=== PATIENT | female | born 1945 | race Caucasian/White ===

== ENCOUNTER → 2016-11-03 | Outpatient (CLI) | payer OTHER | LOC: MMPC 09:00 | PROVIDERS: ATTEND Family Medicine | DX: I10 Essential (primary) hypertension (principal); F32.0 Major depressive disorder, single episode, mild; K86.1 Other chronic pancreatitis; E66.9 Obesity, unspecified | CPT/HCPCS: 99214; G0463 ==

== ENCOUNTER → 2016-12-26 | Outpatient (CLI) | payer OTHER ==
--- NOTE | 2016-12-26 15:14 | EKG ---
[address] [address] Measurements Intervals [place] Rate: 69 P: 62 [place]: 153 QRS: 32 QRSD: 78 T: 25 QT: 406 QTc: 425 Interpretive Statements SINUS RHYTHM No previous ECG available for comparison Electronically Signed On 12-26-16 15:57:50 MDT by Derrell Bryant [id number]
[2016-12-26 16:11] LABS: HEMATOCRIT 31.9 % (37.0-47.0); HEMOGLOBIN 10.7 g/dL (12.0-16.0); MEAN CORPUSCULAR HGB CONC 33.5 g/dL (33-37); MEAN CORPUSCULAR VOLUME 92.5 FL (81-99); MEAN PLATELET VOLUME 8.5 FL (7.4-12.2); RED BLOOD COUNT 3.45 10^6/uL (4.20-5.40)
[2016-12-26 16:33] LABS: CALCIUM 8.9 mg/dL (8.7-10.7)
--- NOTE | 2016-12-26 18:17 | DI ---
XR HIP COMPLETE MIN 2VW U/L,12/26/2016 2:43 PM: Clinical History: Right hip pain. Previous Exam: None at this facility. Findings: 3 views of the right hip are obtained, and demonstrate loss of joint space with some sclerosis and os teophyte formation. Mild degenerative changes of the contralateral hip are also noted. A nonobstructive bowel gas pattern is seen. There are a few ossifications noted overlying the buttocks likely representing injection granulomas. Impression: Degenerative changes of the right hip joint.
== END ==
LOC: MOB RAD 14:44
PROVIDERS: ATTEND Family Medicine
DX: K86.1 Other chronic pancreatitis (principal); I10 Essential (primary) hypertension; M25.551 Pain in right hip; R07.2 Precordial pain; M16.11 Unilateral primary osteoarthritis, right hip
CPT/HCPCS: 36415; 73502; 80053; 82787; 83690; 84443; 85027; 93005; 93010

== ENCOUNTER → 2017-01-02 | Outpatient (CLI) | payer OTHER ==
--- NOTE | 2017-01-02 13:44 | DI ---
CT ABD W/CN AND PELVIS W/CN,01/02/2017 12:52 PM: Clinical History: Chronic pancreatitis. Previous Exam: October 13, 2014 Findings: Multiple helically acquired CT images are obtained through the abdomen and pelvis following the intra venous administration of 75 cc of Isovue 300, and demonstrate a normal liver and spleen. Postsurgical changes are noted of the gastroesophageal junction. The distal esophagus appears to be thickened sli ghtly although this is stable from the prior exam. Patient is status post cholecystectomy. The adrenals and kidneys are unremarkable. The pancreas is no rmal. Peripheral vascular calcifications are seen. There is a stable ventral hernia containing a short loop of small bowel. The appendix is normal. The urinary bladder is unremarkable. There is no free air nor free fluid. There is gentle dextroscoliosis of the lumbar spine. The visualized portions of the thoracic and lumbar spine are unremarkable. There is a broad-based disc bulge at L3/4 causing moderate to severe left and moderate right neurofor aminal narrowing with central canal stenosis. Impression: 1. Normal pancreas. 2. Anterior abdominal wall hernia containing a short loop of small bowel.
== END ==
LOC: CT 12:46
PROVIDERS: ATTEND Family Medicine
DX: K86.1 Other chronic pancreatitis (principal)
CPT/HCPCS: 74177

== ENCOUNTER → 2017-01-23 | Outpatient (CLI) | payer OTHER | LOC: MMPC 11:11 | PROVIDERS: ATTEND Surgery | DX: R74.8 Abnormal levels of other serum enzymes (principal); K21.9 Gastro-esophageal reflux disease without esophagitis; D64.9 Anemia, unspecified; K43.9 Ventral hernia without obstruction or gangrene; Z86.010 Personal history of colon polyps; Z87.11 Personal history of peptic ulcer disease | CPT/HCPCS: 99213; G0463 ==

== ENCOUNTER → 2017-02-08 | Outpatient (CLI) | payer OTHER | LOC: RT 10:25 | PROVIDERS: ATTEND Family Medicine | DX: R06.02 Shortness of breath (principal); R07.89 Other chest pain; R07.0 Pain in throat | CPT/HCPCS: 99214 ==

== ENCOUNTER → 2017-02-08 | Outpatient (CLI) | payer OTHER | LOC: MMPC 09:00 | PROVIDERS: ATTEND Family Medicine | DX: R07.9 Chest pain, unspecified (principal); R06.02 Shortness of breath ==

== ENCOUNTER → 2017-02-12 | Outpatient (CLI) | payer OTHER ==
--- NOTE | 2017-02-12 14:10 | DI ---
CT CHEST W/O CONTRAST,02/12/2017 8:45 AM: Clinical History: Chest pain in an adult Previous Exam: Jan 08 2017 Findings: Multiple helically acquired CT images are obtained through the chest without contrast, and demonstrat e a normal-appearing thyroid. The lungs are clear. Coronary artery calcifications are noted. Peripher al vascular disease is also seen. There is no infiltrate nor effusion. Patient is status post cholecystectomy. There are also multiple surgical clips at the gastroesophageal junction. Peripheral vascular calcifications are seen. Moderate stool is noted throughout the colon. There is thickening of the distal esophagus near the diaphragmatic hiatus. Several peripheral vascular calcifications are seen. Mild diffuse degenerative changes of the spine a re noted. Impression: 1. Diffuse coronary artery disease. 2. Postsurgical changes of the upper abdomen near the gastroesophageal junction with some thickening of the distal esophagus. This could represent a small hiatal hernia or some distal esophagitis.
== END ==
LOC: CT 08:42
PROVIDERS: ATTEND Family Medicine
DX: R07.9 Chest pain, unspecified (principal); R06.02 Shortness of breath; K86.1 Other chronic pancreatitis; I25.10 Atherosclerotic heart disease of native coronary artery without angina pectoris
CPT/HCPCS: 36415; 71250; 83690

== ENCOUNTER → 2017-03-01 | Outpatient (CLI) | payer OTHER ==
--- NOTE | 2017-03-02 09:32 | PE ---
[facility] Interpretive Statements [id number]
--- NOTE | 2017-03-05 16:26 | HOLTER ---
[facility] [place] Stat[place] This is a 48 hour Holter study done for "chest pain." The diary report includes 4 events with symptoms of: "going to walk dog and really voltage inspector half chest and throat", "watching TV-throat tight, chest heavy, hurts muscles in both arms", "up to bathroom-throat tight, chest hurts-weight", and "getting dressed-throat tight, chest weight, hard to breath, hurts." These 4 episodes and another marking on the tracings correspond with the predominate rhythm of normal sinus with sinus arrhythmia and singlet APCs at rates of 60 to 90 BPM. There were 189,377 total beats recorded and the average rate was 77 BPM with a minimum rate of 57 BPM and a maximum rate of 165 BPM by computerized reading (but I find a 99 beat run of PSVT at 300 BPM at 5:56 PM day 2 that was not labeled as symptomatic). The total ventricular ectopic count by computer was 102 beats with all being singlets. There were no signficant bradycardias or pauses > 2 seconds. There was an episode of ST elevation at 3:34 PM day 2 (also without symptoms reported). IMPRESSION: Abnormal Holter study with episodes of apparently asymptomatic SVT (13 episodes with one at prolonged rate of 300) and no clear correlation of ectopy with 4 reported symptomatic intervals. SUGGEST Stress testing. Electronically Signed On 03-06-17 14:52:44 MDT by Dilshad Peguero MD [id number]
== END ==
LOC: RT 10:11
PROVIDERS: ATTEND Family Medicine
DX: R07.9 Chest pain, unspecified (principal); R06.02 Shortness of breath
CPT/HCPCS: 93225; 93226; 93227; 94375

== ENCOUNTER → 2017-03-06 | Outpatient (CLI) | payer OTHER | LOC: MMPC 09:00 | PROVIDERS: ATTEND Family Medicine | DX: R07.89 Other chest pain (principal); K86.1 Other chronic pancreatitis; R06.02 Shortness of breath; I10 Essential (primary) hypertension | CPT/HCPCS: 99213; G0463 ==

== ENCOUNTER 2017-03-09 13:45 | Emergency (ER) | payer OTHER ==
[2017-03-09] MEDS ORDERED: ASPIRIN 81 MG (BABY) CHEWABLE TABLET PO ONE (13:57)
[2017-03-09] MEDS ORDERED: Sodium Chloride 0.9% 1,000 ML PRIMARY IV ONE (13:57)
--- NOTE | 2017-03-09 13:58 | PDOC ---
Chest Pain HPI - General Chief Complaint: Chest Pain Stated Complaint: heart racing/chest pain Date Seen by Provider: 03/09/17 Time Seen by Provider: 13:55 Source: Patient, EMS Exam Limitations: POSITIVE: No limitations Treatment Prior to Arrival: REPORTS: Oxygen Nurse's Notes Reviewed & Considered: Yes EMS Report Reviewed & Considered: Verbal - History of Present Illness Initial Comments: Very pleasant 72-year-old female who is a poor historian. Patient developed chest pain today that she described as 2000 pounds sitting on her chest. She had associated shortness of breath. Patient was at the [facility] in the heat when she developed her symptoms of chest pain and shortness of breath. She called for EMS. EMS arrived and found her to be pain free at that time they transported her here for further evaluation. Patient recently underwent a Holter monitor evaluation and a two day Lexiscan stress and rest myocardial perfusion test. Patient denies any headache, sore throat, her chest pain has resolved, she is slightly short of breath. She denies any fever chills or sweats, no nausea vomiting or diarrhea, no hematuria or dysuria, no rashes. Body Location Affected: REPORTS: Chest Timing: REPORTS: Abrupt Duration: 1/2 hour Severity: Severe Context: REPORTS: Activity Quality: REPORTS: "Pain", Pressure Radiation: REPORTS: None Associated Symptoms: REPORTS: Shortness of Breath, Weakness Modifying Factors: improves with: None Reported Similar Symptoms Previously: No Recently seen/treated/hospitalized: Yes Any Prior Injuries Related to Current Complaint?: No - Patient Home Medications Home Medications: Home Medications Aspirin [Lo-Dose Aspirin] 81 mg ORAL QD tab 08/01/12 Cyclobenzaprine HCl 1 tab PO QD PRN #30 tab 07/03/16 Acyclovir [Zovirax] 400 mg PO TID #90 tab 11/06/16 Dicyclomine HCl 1 tab PO QID #120 tab 11/08/16 Venlafaxine HCl [Venlafaxine Hcl Er] 150 mg ORAL QD #30 capsule 01/04/17 Lisinopril/Hydrochlorothiazide [Lisinopril-Hctz 20-25 Mg Tab] 1 tab ORAL QD #30 tab 02/05/17 Pantoprazole Sodium 40 mg PO DAILY #90 tab 03/06/17 Metoprolol Succinate 1 tab PO DAILY #30 tab 03/09/17 - Patient Allergies Allergies/Adverse Reactions: Allergies Allergy/AdvReac Type Severity Reaction Status Date / Time grass pollen Allergy SHORTNESS Verified 03/09/17 13:49 OF BREATH mold Allergy SHORTNESS Verified 03/09/17 13:49 OF BREATH ragweed pollen Allergy SHORTNESS Verified 03/09/17 13:49 OF BREATH gras Allergy SHORTNESS Uncoded 03/09/17 13:49 OF BREATH mildew Allergy SHORTNESS Uncoded 03/09/17 13:49 OF BREATH seasonal Allergy SHORTNESS Uncoded 03/09/17 13:49 OF BREATH Past Medical History - heen HEENT History: Hard of Hearing, Dentures/Partials Additional HEENT History: left ear deaf, right [place] use hearing aide Cardiovascular History: Hypertension Respiratory History: Denies History Gastrointestinal History: Peptic Ulcer Disease, Gallbladder Disease Genitourinary History: Denies History Endocrine History: Other (please comment) Additional Endocrine History: TYPE II DM PRIOR TO GASTRIC BYPASS. Musculoskeletal History: Osteoporosis, Back Injury Prosthesis or Implant: No (dental implants) Additional Musculoskeletal History: TENDONITIS IN HANDS Neurological History: Denies History Blood Disorders: Denies History Psychiatric History: Depression History of Sexually Transmitted Diseases: No Cancer History: Denies History History of MDRO: No History of Other Communicable Diseases: No Alcohol Use: None Substance Use Type: None Previous Surgical History: Yes Type / Date of Surgery: COLONOSCOPY/EGD/GASTRIC BYPASS 2003/COLPOCLEISIS Anesthesia Reactions: No Malignant Hyperthermia: No Significant Family History: Heart disease, Cancer ROS - Limitations ROS Limitations: No Limitations Constitution: REPORTS: Denies Symptoms Cardiovascular: REPORTS: Chest Pain Respiratory: REPORTS: Shortness Of Breath Neurological: REPORTS: Denies Neuro Symptoms Gastrointestinal: REPORTS: Denies GI Symptoms Endocrine: REPORTS: Denies Symptoms Musculoskeletal: REPORTS: Denies MS Symptoms Genitourinary: REPORTS: Denies Symptoms Eyes: REPORTS: Denies Symptoms ENT: REPORTS: Denies Symptoms Skin: REPORTS: Denies Skin Symptoms Lympathic: REPORTS: Denies Lympathic Symptoms Immunologic: POSITIVE: Denies Symptoms Psychiatric: POSITIVE: Denies Psych Symptoms Chest Pain PE - General Appearance General Appearance: REPORTS: Alert, Cooperative, No Acute Distress, No Evidence of Trauma - HEENT HEENT: POSITIVE: Head Inspection Nml, Eyes Inspection Nml, Ears Inspection Nml, Nose Inspection Nml, Oral/Dental Inspect. Nml, Pharynx Inspect. Nml, PERRL, EOMI - Neck Neck: REPORTS: Normal Inspection - Respiratory Respiratory: REPORTS: No Respiratory Distress, Breath Sounds Normal, Chest Non- Tender - Cardiovascular Cardiovascular: REPORTS: Regular Rate and Rhythm, Heart Sounds Normal, Equal Pulses, No Murmur, No Gallop, No Friction Rub, No JVD Peripheral Pulses: Radial (R): 4+ - Abdomen Abdomen: Soft: (All Quadrants), Normal Bowel Sounds: (All Quadrants), Denies Tenderness: (All Quadrants), No Splenomegaly: (All Quadrants), No Hepatomegaly: (All Quadrants), No Guarding: (All Quadrants), No Rebound: (All Quadrants), No Palpable Pulse: (All Quadrants), No Palpabale Mass: (All Quadrants), No Distention: (All Quadrants), No Rigidity: (All Quadrants) - Skin Skin: REPORTS: Intact, Normal For Race, Warm, Dry, No Rash - Extremities Extremity: Non-Tender: (All Extremities), Normal ROM: (All Extremities), Normal Inspection: (All Extremities), Pelvis Stable: (All Extremities) - Neurological / Psychological Neurological: POSITIVE: 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, 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 As Tested, Motor Normal, Sensation Normal, 5, 6 Chest Pain Progress - Results Reviewed by me Xrays/CTs/US Reviewed by me: Yes Discussed with Radiologist: Yes Lab Results Reviewed: Yes Lab Results:: Laboratory Results 03/09/17 Range/Units 14:05 WBC 6.78 (4.8-10.8) 10^3/uL RBC 3.37 L (4.20-5.40) 10^6/uL Hgb 10.5 L (12.0-16.0) g/dL Hct 31.6 L (37.0-47.0) % MCV 93.8 (81-99) FL MCH 31.2 H (27-31) PG MCHC 33.2 (33-37) g/dL RDW Std Deviation 42.9 (39-50) fL RDW Coeff of Mata 12.9 (11.5-14.5) % Plt Count 285 (140-350) 10*3/uL MPV 8.2 (7.4-12.2) FL Immature Gran % (Auto) 0.3 (0-5) % Neut % (Auto) 80.1 H (50-80) % Lymph % (Auto) 13.9 (10-50) % [place] % (Auto) 5.3 (5-15) % Eos % (Auto) 0.1 (0-8) % Baso % (Auto) 0.3 (0-1) % Immature Gran # (Auto) 0.02 10*3/UL Neut # (Auto) 5.43 10*3/UL Lymph # (Auto) 0.94 10*3/uL [place] # (Auto) 0.36 (0.3-0.8) 10*3/UL Eos # (Auto) 0.01 10*3/UL Baso # (Auto) 0.02 10*3/UL WBC Morphology Comment Normal morphology (NORM) Plt Morphology Comment Normal morphology (NORM) RBC Morph Comment Normal morphology (NORM) D-Dimer 0.79 H (0.00-0.59) mg/L Sodium 128 L (135-145) meq/L Potassium 4.5 (3.8-5.2) meq/L Chloride 99 (98-112) meq/L Carbon Dioxide 19 L (23-33) meq/L Anion Gap 10 (5-20) BUN 26 H (7-22) mg/dL Creatinine 1.3 H (0.50-1.20) mg/dL Estimated GFR Hammer Driver BUN/Creatinine Ratio 20.00 (6-20) Glucose 195 H (78-110) mg/dL Calculated Osmolality 275.0 (267-292) mOsm/kg Calcium 8.8 (8.7-10.7) mg/dL Magnesium 1.4 L (1.6-2.4) mg/dL Total Bilirubin 0.5 (0.3-1.2) mg/dL AST 23 (8-39) IU/L ALT 23 (9-52) IU/L Alkaline Phosphatase 63 (38-126) IU/L Troponin I 0.099 H (< 0.040) ng/mL NT-Pro-B Natriuret Pep 629 H (0-125) PG/ML Total Protein 7.5 (6.1-8.0) g/dL Albumin 4.1 (3.5-4.8) g/dL Globulin 3.4 (2.50-4.10) g/dL Albumin/Globulin Ratio 1.20 L (1.3-2.0) mg/g TSH 1.49 (0.2700-4.2000) uIU/mL EKG Interpretation:: POSITIVE: Normal Sinus Rhythm, Normal Rate, Abnormal EKG, Other (ST depression anterior lateral leads) - Patient's Progress Pain Medication Addressed: POSITIVE: Yes Re-Examine Time: 15:41 Status: POSITIVE: Improved MDM / ED Course: Patient was examined, an IV started, blood drawn and sent to the lab for studies , EKG and radiographic examinations were obtained. ER course: Patient received a liter of normal saline, 324 mg of aspirin, her symptoms slowly improved. Findings: CBC shows anemia with hemoglobin of just over 10 and hematocrit over 31. Chest x-ray as read by me shows no acute cardiopulmonary decompensation. Troponin is elevated at 0.099. D-dimer is elevated at 0.79. Comprehensive metabolic panel shows a hyponatremia with a sodium of 129, creatinine is elevated at 1.3 with an elevated BUNs. EKG per my interpretation shows ST depression in leads V5 and 6, a normal sinus rhythm with a rate of 90 beats a minute. Magnesium is low at 1.4. Assessment: #1 non-ST elevated UT. #2 renal failure. #3 hyponatremia. #4 hypomagnesemia. Plan: Transfer to for cardiology evaluation and possible catheter lab intervention. I did discuss this patient with Dr. Underwood who has graciously accepted transfer of this patient. Quality Measure Initiative: CP/AMI: POSITIVE: EKG, ASA Quality Measure Initiative: CAP: POSITIVE: CXR or CT - Consult Consult (If Yes, Name of Consulting MD & Time Called): Yes (Dr. Pope [id number]) Consulting MD will see pt:: POSITIVE: Recommended Transfer Counseled: POSITIVE: Patient, RE: Lab Results, RE: Radiology Results, RE: DX Patient Care Time - Estimated PCT Patient Care Time (In Minutes): 45 Vital Signs - Recent Vital Signs Vital Signs: Vital Signs (Last 8 hours) Temp Pulse Resp BP Pulse Ox 03/09/17 14:00 98.1 F 84 18 114/53 95 - VS Reviewed Vital Signs Reviewed: Yes Discharge Clinical Impression: Myocardial infarction Discharge Disposition: Transferred to Tertiary Care Facility Condition: Stable Date Decision to Transfer to Another Facility: 03/09/17 Time Decision to Transfer to Another Facility: 15:00
[2017-03-09 14:07] VITALS: RESP 18; TEMP 98.1
[2017-03-09 14:11] LABS: BASOPHILS # (AUTO) 0.02 10*3/UL; BASOPHILS % (AUTO) 0.3 % (0-1); EOSINOPHILS # (AUTO) 0.01 10*3/UL; EOSINOPHILS % (AUTO) 0.1 % (0-8); HEMATOCRIT 31.6 % (37.0-47.0); HEMOGLOBIN 10.5 g/dL (12.0-16.0); LYMPHOCYTES # (AUTO) 0.94 10*3/uL; MEAN CORPUSCULAR HEMOGLOBIN 31.2 PG (27-31); MEAN CORPUSCULAR HGB CONC 33.2 g/dL (33-37); MEAN CORPUSCULAR VOLUME 93.8 FL (81-99); MEAN PLATELET VOLUME 8.2 FL (7.4-12.2); MONOCYTES # (AUTO) 0.36 10*3/UL (0.3-0.8); MONOCYTES % (AUTO) 5.3 % (5-15); NEUTROPHILS # (AUTO) 5.43 10*3/UL; NEUTROPHILS % (AUTO) 80.1 % (50-80); RED BLOOD COUNT 3.37 10^6/uL (4.20-5.40)
[2017-03-09 14:12] LABS: PLATELET MORPHOLOGY COMMENT NORMAL MORPHOLOGY (NORM); RBC MORPHOLOGY COMMENT NORMAL MORPHOLOGY (NORM); WBC MORPHOLOGY COMMENT NORMAL MORPHOLOGY (NORM)
[2017-03-09 14:16] LABS: BLOOD UREA NITROGEN 26 mg/dL (7-22); CALCIUM 8.8 mg/dL (8.7-10.7); MAGNESIUM 1.4 mg/dL (1.6-2.4); SERUM ALBUMIN 4.1 g/dL (3.5-4.8)
[2017-03-09] MEDS ORDERED: Magnesium Sulfate 2gm (Premix) 2 GM in Premix 1 BAG IV ONE (14:49)
[2017-03-09] MEDS ORDERED: Magnesium Sulfate 2gm (Premix) 50 ML IV ONE (14:59)
--- NOTE | 2017-03-09 15:22 | DI ---
AP CHEST X-RAY, 03/09/2017 1:57 PM : Clinical History: Chest pain. Previous Exam: 05/20/2010. There is no acute soft tissue or bony abnormality. Heart size is normal. Lungs are clear. Mediastinal structures are normal. There are no pulmonary nodules. Reading: Normal chest x-ray. There has been no significant interval change.
--- NOTE | 2017-03-09 15:48 | EKG ---
[address] [address] Measurements Intervals [place] Rate: 88 P: 56 [place]: 159 QRS: 35 QRSD: 73 T: 26 QT: 345 QTc: 390 Interpretive Statements SINUS RHYTHM NONSPECIFICST DEPRESSION Compared to ECG 12/26/2016 15:14:45 ST (T wave) deviation now present Electronically Signed On 03-10-17 16:27:04 MDT by Derrell Bryant [id number]
[2017-03-09] MEDS ORDERED: HEPARIN 5000 UNIT/1 ML IV ONE (15:52)
[2017-03-09] MEDS ORDERED: CLOPIDOGREL BISULFATE 300 MG TABLET PO ONE (15:52)
== END 2017-03-09 16:21 | disposition home or self-care (01) ==
LOC: ER 13:45
DX: I21.4 Non-ST elevation (NSTEMI) myocardial infarction (principal); R06.02 Shortness of breath; N19 Unspecified kidney failure; E87.1 Hypo-osmolality and hyponatremia; E83.42 Hypomagnesemia; R07.9 Chest pain, unspecified
CPT/HCPCS: 71010; 80053; 83735; 83880; 84443; 84484; 85025; 85379; 85730; 93005; 93010; 96365; 96375; 99285 ×2; J1644 ×2; J3475

== ENCOUNTER → 2017-03-26 | Outpatient (CLI) | payer OTHER ==
[2017-03-26 07:45] LABS: BUN/CREATININE RATIO 18.18 (6-20); CALCIUM 8.5 mg/dL (8.7-10.7)
== END ==
LOC: LAB 07:15
PROVIDERS: ATTEND Internal Medicine Nephrology
DX: E87.1 Hypo-osmolality and hyponatremia (principal)
CPT/HCPCS: 36415; 80048

== ENCOUNTER → 2017-03-30 | Outpatient (CLI) | payer OTHER ==
[2017-03-30 07:35] LABS: HEMATOCRIT 31.8 % (37.0-47.0); MEAN CORPUSCULAR HEMOGLOBIN 30.8 PG (27-31); MEAN CORPUSCULAR HGB CONC 31.4 g/dL (33-37); MEAN CORPUSCULAR VOLUME 97.8 FL (81-99); MEAN PLATELET VOLUME 8.4 FL (7.4-12.2); RED BLOOD COUNT 3.25 10^6/uL (4.20-5.40)
[2017-03-30 07:45] LABS: BUN/CREATININE RATIO 17.27 (6-20); CALCIUM 8.8 mg/dL (8.7-10.7)
== END ==
LOC: LAB 07:14
PROVIDERS: ATTEND Internal Medicine Cardiovascular Disease
DX: I25.10 Atherosclerotic heart disease of native coronary artery without angina pectoris (principal)
CPT/HCPCS: 36415; 80048; 85027

== ENCOUNTER → 2017-04-02 | Outpatient (CLI) | payer OTHER | LOC: MMPC 09:00 | PROVIDERS: ATTEND Family Medicine | DX: R60.0 Localized edema (principal); F41.1 Generalized anxiety disorder; K59.03 Drug induced constipation; Z95.1 Presence of aortocoronary bypass graft | CPT/HCPCS: 99213; G0463 ==